=== PATIENT | male | born 1995 | race Caucasian/White ===

== ENCOUNTER 2016-12-04 22:29 | Emergency (ER) | payer SELFPAY ==
[2016-12-04 22:34] VITALS: TEMP 98.2; O2SAT 99
[2016-12-04] MEDS ORDERED: Oxycodone/Acetaminophen 5/325 mg Tab PO STA (22:49)
--- NOTE | 2016-12-04 22:50 | C.PDOC ---
History Of Present Illness 21 yo male c/o left knee pain s/p fall just prior to arrival. Pt was playing baseball, running and twisted his knee causing him to fall. No other trauma or injury. No change in sensation. Pain with ambulation. No head trauma. Time Seen by Provider: 12/04/16 22:35 Chief Complaint (Nursing): Lower Extremity Problem/Injury History Per: Patient History/Exam Limitations: no limitations Onset/Duration Of Symptoms: Mins Current Symptoms Are (Timing): Still Present - Knee Description Of Injury: Fell, Twisted Past Medical History Vital Signs: Last Vital Signs Temp 98.2 F 12/04/16 22:30 Pulse 98 H 12/04/16 23:55 Resp 18 12/04/16 23:55 BP 132/82 12/04/16 23:55 Pulse Ox 99 12/04/16 23:55 Family History: States: Unknown Family Hx - Social History Hx Alcohol Use: Yes Hx Substance Use: No - Immunization History Hx Tetanus Toxoid Vaccination: Yes Hx Influenza Vaccination: No Hx Pneumococcal Vaccination: No Review Of Systems Constitutional: Negative for: Fever Cardiovascular: Negative for: Chest Pain Respiratory: Negative for: Shortness of Breath Neurological: Negative for: Weakness, Numbness Physical Exam - Physical Exam Appears: Well, Non-toxic, Other (uncomfortable) Skin: Normal Color, Warm, Dry Head: Atraumatic, Normacephalic Eye(s): bilateral: Normal Inspection, EOMI Nose: Normal Oral Mucosa: Moist Neck: Normal, Normal ROM, Supple Chest: Symmetrical Respiratory: No Accessory Muscle Use Back: Normal Inspection, No Vertebral Tenderness Extremity: No Normal ROM (decreased ROM), Tenderness (diffuse), No Calf Tenderness, Capillary Refill (< 2 sec), Swelling Extremity: Bilateral: Normal Color And Temperature Pulses: Left Dorsalis Pedis: Normal, Right Dorsalis Pedis: Normal Neurological/Psych: Oriented x3, Normal Speech, Normal Motor, Normal Sensation ED Course And Treatment O2 Sat by Pulse Oximetry: 99 - Other Rad Knee XR L X-Ray: Interpreted by Me, Viewed By Me Interpretation: No fx or dislcoation Progress Note: Knee immobilizer and crutches applied by turfgrass technician. Instructed RICE and follow up with ortho in 1-2 days. Disposition - Disposition Referrals: Rupinder Jain MD [Staff Provider] - Disposition: HOME/ ROUTINE Disposition Time: 23:14 Condition: STABLE Additional Instructions: Rest, ice and elevate the area. Follow up with bone doctor in 1-2 days. Return to ER if symptoms persist or worsen., Prescriptions: Naproxen [Naprosyn] 1 tab PO BID PRN #20 tab PRN Reason: Pain Instructions: Knee Pain (ED) Forms: [facility] (Setswana) Print Language: LEBANESE - Clinical Impression Clinical Impression: Knee strain
[2016-12-04] MEDS ORDERED: Oxycodone/Acetaminophen 5/325 mg Tab ONE (22:54)
[2016-12-05 00:45] VITALS: BP 132/82; PULSE 98; RESP 18
--- NOTE | 2016-12-05 09:19 | RAD ---
PROCEDURE: Left Knee Radiographs. HISTORY: Pain. COMPARISON: None. FINDINGS: BONES: Bone alignment and mineralization are normal. There is no acute displaced fracture or bone destruction. JOINTS: Normal. No osteoarthritis. JOINT EFFUSION: There is a moderate suprapatellar joint effusion. OTHER FINDINGS: None. IMPRESSION: No acute fracture or dislocation. Moderate suprapatellar joint effusion.
== END 2016-12-04 23:50 | disposition home or self-care (01) ==
LOC: C.ER 22:29
DX: S86.912A Strain of unspecified muscle(s) and tendon(s) at lower leg level, left leg, initial encounter (principal); W18.30XA Fall on same level, unspecified, initial encounter; Y93.64 Activity, baseball

== ENCOUNTER 2018-06-08 22:24 | Emergency (ER) | payer SELFPAY ==
[2018-06-08 22:32] VITALS: TEMP 98
[2018-06-09 00:34] VITALS: BP 120/70; PULSE 84; RESP 14; O2SAT 99
--- NOTE | 2018-06-09 02:20 | C.PDOC ---
History Of Present Illness 23 year old male presents to the ER after having two episodes of palpations that lasted 30 seconds each. Currently he has not symptoms. No family cardiac Hx at early age. Chief Complaint (Nursing): Chest Pain History Per: Patient History/Exam Limitations: no limitations Onset/Duration Of Symptoms: Other (Seconds) Current Symptoms Are (Timing): Gone Modifying Factors: None Exacerbating Factors: None Alleviating Factors: None Recent travel outside of the [place]: No Past Medical History Reviewed: Historical Data, Nursing Documentation, Vital Signs Vital Signs: Last Vital Signs Temp 98 F 06/08/18 22:30 Pulse 84 06/09/18 00:33 Resp 14 06/09/18 00:33 BP 120/70 06/09/18 00:33 Pulse Ox 99 06/09/18 00:33 Family History: States: Unknown Family Hx - Social History Hx Alcohol Use: Yes Hx Substance Use: No - Immunization History Hx Tetanus Toxoid Vaccination: Yes Hx Influenza Vaccination: No Hx Pneumococcal Vaccination: No Review Of Systems Constitutional: Negative for: Fever, Chills Cardiovascular: Positive for: Palpitations. Negative for: Chest Pain Respiratory: Negative for: Cough, Shortness of Breath Gastrointestinal: Negative for: Nausea, Vomiting Neurological: Negative for: Weakness, Numbness Physical Exam - Physical Exam Appears: Non-toxic Skin: Normal Color, Warm, Dry Head: Atraumatic, Normacephalic Eye(s): bilateral: Normal Inspection Oral Mucosa: Moist Neck: Normal, Supple Chest: Symmetrical, No Tenderness Cardiovascular: Rhythm Regular Respiratory: Normal Breath Sounds, No Rales, No Rhonchi, No Wheezing Gastrointestinal/Abdominal: Soft, No Tenderness Neurological/Psych: Oriented x3, Normal Speech ED Course And Treatment ECG: Interpreted By Me, Viewed By Me ECG Rhythm: Sinus Rhythm ECG Interpretation: Normal Rate From EC O2 Sat by Pulse Oximetry: 99 (room air) Pulse Ox Interpretation: Normal Disposition - Disposition Referrals: [facility] [Outside] [facility] [Outside] Disposition: HOME/ ROUTINE Disposition Time: 23:50 Condition: GOOD Additional Instructions: PAOLA MURCIA, thank you for letting us take care of you today. The emergency medical care you received today was directed at your acute symptoms. If you were prescribed any medication, please fill it and take as directed. It may take several days for your symptoms to resolve. Return to the Emergency Department if your symptoms worsen, do not improve, or if you have any other problems. Please contact your doctor or call one of the physicians/clinics you have been referred to that are listed on the Patient Visit Information form that is included in your discharge packet. Bring any paperwork you were given at discharge with you along with any medications you are taking to your follow up visit. Our treatment cannot replace ongoing medical care by a primary care provider outside of the emergency department. Thank you for allowing the [facility] team to be part of your care today. Follow up with the clinic this week for re-evaluation and further management. Instructions: Palpitations (DC) Forms: [employer] (Swiss) - Clinical Impression Clinical Impression: Palpitations - Scribe Statement The provider has reviewed the documentation as recorded by the Scribe Bryan Rey All medical record entries made by the Scribe were at my direction and personally dictated by me. I have reviewed the chart and agree that the record accurately reflects my personal performance of the history, physical exam, medical decision making, and the department course for this patient. I have also personally directed, reviewed, and agree with the discharge instructions and disposition.
--- NOTE | 2018-06-09 20:17 | CARD ---
APPROVED REPORT Date of service: 06/08/2018 EKG Measurement Heart [id number] <Conclusion> Normal sinus rhythm Incomplete right bundle branch block Nonspecific T wave abnormality Abnormal ECG
== END 2018-06-09 00:34 | disposition home or self-care (01) ==
LOC: C.ER 22:24
DX: R00.2 Palpitations (principal)